=== PATIENT | female | born 1955 | race African-American/Black ===

== ENCOUNTER 2016-12-30 18:09 | Emergency (ER) | payer MEDICAID, OTHER ==
[~2016-12-30] VITALS: Ht 154.9 cm; Wt 108.0 kg
[~2016-12-30 18:09] MED LIST: CEPH500C3 PO; GLYB1TAB50 PO; HYDR-3533 PO; HYDR25 PO; KCL10C PO; LISI-363 PO; LORA10TA PO; MECL-62 PO; METO50TA PO; MOME0.05 TOP; NIFE1TAB85 PO; OXCA300S6 PO; PROT40TA PO; SERT100 PO; SIMV1TAB76 PO; TRAZ50TA4 PO; ZIPR1CAP27 PO
[2016-12-30 18:11] VITALS: BP 180/86; PULSE 82; RESP 16; TEMP 98.1; O2SAT 98
--- NOTE | 2016-12-30 18:45 | PD ---
Physical Exam Time Seen by Provider: 18:45 Narrative 61 y/o female with L eye irritation, redness for a few weeks. She has had some blurred vision as well. Vital signs reviewed. Seen at triage desk. Awaiting bed placement. Data Data Last Documented VS Vital Signs Date Time Temp Pulse Resp B/P Pulse Ox O2 Delivery O2 Flow Rate FiO2 12/30/16 18:11 98.1 82 16 180/86 98 MDM Medical Record Reviewed: Yes Supervised Visit with TRUPTI: Darek Higgins Dec 30, 2016 18:45
--- NOTE | 2016-12-30 19:41 | PD ---
HPI Chief Complaint: Eye Problems/Injury Time Seen by Provider: 19:38 Travel History International Travel<30 days: No Contact w/Intl Traveler<30days: No Traveled to known affect area: No History of Present Illness HPI 61-year-old black female presents emergency Department with complains of left eye redness and decreased vision. She states that this is been present now for the past few days. The patient states that she has had this in the past several weeks ago. She was seen by her primary care doctor yesterday and was given a referral to a agriculture specialist. She also had went to a urgent care today who advised her to come to the ER. She denies any trauma. No fever chills. No diplopia. No photophobia. No itching or drainage. No foreign body sensation. She states that she has not seen an agriculture specialist or return checker and some time now. She does report that she does need glasses. PFSH Past Medical History Narrative Medical Bipolar, hyperlipidemia, diabetes, GERD, hypertension Bipolar Disorder: Yes Cardiovascular Problems: Yes (htn) High Cholesterol: Yes Diabetes: Yes Patient Takes Glucophage: No GERD: Yes Hypertension: Yes Tetanus Vaccination: < 5 Years ?: Not Past Surgical History Cholecystectomy: Yes Gynecologic Surgery: Yes Hysterectomy: Yes (ONE OVARY) Social History Alcohol Use: No Tobacco Use: No Substance Use: No Allergies-Medications (Allergen,Severity, Reaction): Coded Allergies: Codeine (Verified Allergy, Severe, Itching, 12/30/16) Penicillin (Verified Allergy, Severe, Itching, 12/30/16) Reported Meds & Prescriptions Reported Meds & Active Scripts Active Active Prescriptions or Reported Medications Unobtainable Review of Systems Except as stated in HPI: all other systems reviewed are Neg General / Constitutional: No: Fever, Chills Eyes: Positive: Blurred Vision, Redness, Visual changes, No: Diploplia, Photophobia, Drainage, Foreign Body Sensation, Pain, Tearing, Blind Spots, Blindness HENT: No: Headaches, Neck Pain Cardiovascular: No: Chest Pain or Discomfort, Palpitations Respiratory: No: Cough, Shortness of Breath Physical Exam Narrative GENERAL: Well-developed, well-nourished in no acute distress. Nontoxic appearing. HEAD: Normocephalic, atraumatic. EYES: Pupils equal round and reactive. Extraocular motions intact. No scleral icterus. No injection or drainage. No foreign body seen. No discharge. The anterior portion eyes clear. Patient does have some tightness of the lens. Ocular pressure in the right eye is 22 and ocular pressure in the left eye is 15. ENT: TMs clear without erythema. The external auditory canals clear. Nose: clear . Posterior pharynx is pink and moist. No tonsillar edema or exudate. Uvula midline. Airway patent. NECK: Trachea midline.Supple, nontender, moves head freely. No central bony tenderness or spasm. CARDIOVASCULAR: Regular rate and rhythm without murmurs, gallops, or rubs. RESPIRATORY: Clear to auscultation. Breath sounds equal bilaterally. No wheezes , rales, or rhonchi. GASTROINTESTINAL: Abdomen soft, non-tender, nondistended. No hepato-splenomegaly , or palpable masses. No guarding. EXTREMITIES: No clubbing, cyanosis, or edema. No joint tenderness, effusion, or edema noted. BACK: Nontender without deformity or crepitance. No flank tenderness. Data Data Last Documented VS Vital Signs Date Time Temp Pulse Resp B/P Pulse Ox O2 Delivery O2 Flow Rate FiO2 12/30/16 18:11 98.1 82 16 180/86 98 Orders Proparacaine 0.5% Opth Soln (Alcaine 0.5 (12/30/16 19:45) MDM Medical Decision Making Medical Screen Exam Complete: Yes Emergency Medical Condition: Yes Medical Record Reviewed: Yes Differential Diagnosis MDM: High Differential diagnoses: Acute conjunctivitis (bacterial, viral, allergic, traumatic), glaucoma, iritis diabetic retinopathy Narrative Course Patient's exam is unremarkable. Ocular pressures are normal. The patient had been referred by her primary care doctor to ophthalmology. I will reconfirm this. Diagnosis Primary Impression: Redness of right eye Referrals: Ann-Marie Martinez MD 1 day Additional Instructions: Rest. Call the agriculture specialist in the morning for an appoint. Return to the ER for emergencies Med/Other Pt SpecificInfo: No Meds Exist/No RX given Scripts Unable to Obtain Active Prescriptions or Reported Meds Disposition: DISCHARGE HOME Condition: Stable Ck Carmona Dec 30, 2016 19:41
[2016-12-30] MEDS ORDERED: PROPARACAINE HCL 0.5% OPHT SOLN 15 ML BTL EACH EYE ONE (19:45)
[2017-01-01] MEDS ORDERED: CLON1TAB PO (10:00)
[2017-01-01] MEDS ORDERED: METO50TA PO (10:00)
[2017-01-01] MEDS ORDERED: GLIP5TAB8 PO ×2 (10:00→10:54)
[2017-01-01] MEDS ORDERED: NIFE60TA58 PO (10:00)
[2017-01-01] MEDS ORDERED: MECL1TAB42 PO (10:00)
[2017-01-01] MEDS ORDERED: ZETI10TA5 PO (10:00)
[2017-01-01] MEDS ORDERED: LISI-515 PO (10:00)
[2017-01-01] MEDS ORDERED: MOME0.1C23 TOPICAL (10:54)
[2017-01-01] MEDS ORDERED: ZIPR1CAP12 PO (10:54)
[2017-01-01] MEDS ORDERED: BENZ0.5T PO (10:54)
[2017-01-01] MEDS ORDERED: HYDR-3366 PO (10:54)
[2017-01-01] MEDS ORDERED: TRAZ100T6 PO (10:54)
[2017-01-01] MEDS ORDERED: HALO2TAB PO (10:54)
[2017-01-01] MEDS ORDERED: SERT-129 PO (10:54)
[2017-01-01] MEDS ORDERED: EXENINJ SQ (10:54)
[2017-01-01] MEDS ORDERED: BUSP30TA PO (10:54)
[2017-01-01] MEDS ORDERED: LORA24TA PO (10:54)
[2017-01-01] MEDS ORDERED: RANI150T PO (10:54)
[2017-01-01] MEDS ORDERED: OMEG1CAP53 PO (10:54)
[2017-01-01] MEDS ORDERED: BUPR150T5 PO (10:54)
[2017-01-01] MEDS ORDERED: FLUT50SP EACH NARE (10:54)
== END 2016-12-30 20:10 | disposition home or self-care (01) ==
LOC: NEPK 18:09
DX: H57.12 Ocular pain, left eye (principal); H53.8 Other visual disturbances; I10 Essential (primary) hypertension; E11.9 Type 2 diabetes mellitus without complications; E78.5 Hyperlipidemia, unspecified; K21.9 Gastro-esophageal reflux disease without esophagitis
CPT/HCPCS: 99283